=== PATIENT | male | born 1990 | race Caucasian/White ===

== ENCOUNTER 2016-10-11 08:26 | Outpatient (CLI) | payer MEDICAID | END 2016-10-11 08:27 | disposition critical access hospital (66) | DX: R45.851 Suicidal ideations (principal) | CPT/HCPCS: A0425; A0429 ==

== ENCOUNTER 2016-10-11 08:47 | Emergency (ER) | payer MEDICAID ==
[2016-10-11] MEDS ORDERED: POTASSIUM BICARB 25 MEQ TABLET PO STA (10:02)
[2016-10-11] MEDS ORDERED: POTASSIUM BICARB 25 MEQ TABLET PO ONE (10:05)
[2016-10-11] MEDS ORDERED: DEXAMETHASONE 10 MG/ML VIAL PO STA (11:20)
[2016-10-11] MEDS ORDERED: CHERRY SYRUP 10 ML UDC PO ONE (11:33)
[2016-10-11] MEDS ORDERED: DEXAMETHASONE 10 MG/ML VIAL ONE (11:34)
== END 2016-10-11 11:45 | disposition home or self-care (01) ==
DX: F43.10 Post-traumatic stress disorder, unspecified (principal); H66.002 Acute suppurative otitis media without spontaneous rupture of ear drum, left ear; F17.200 Nicotine dependence, unspecified, uncomplicated
CPT/HCPCS: 36415; 80053; 80306; 80320; 81001; 83690; 85025; 99283; 99285; A9270